=== PATIENT | male | born 1980 | race African-American/Black ===

== ENCOUNTER 2023-08-21 19:42 | Emergency (ER) | payer OTHER ==
[~2023-08-21] VITALS: Ht 193 cm; Wt 81.6 kg
[2023-08-21] MEDS ORDERED: IV NORMAL SALINE 1000 ML BAG IV ONE (20:15)
[2023-08-21] MEDS ORDERED: ONDANSETRON 4 MG/2 ML VIAL IV ONE (20:15)
[2023-08-21] MEDS ORDERED: ONDANSETRON 4 MG/2 ML VIAL ONE (20:26)
[2023-08-21] MEDS ORDERED: PANTOPRAZOLE SODIUM 40 MG VIAL ONE (20:26)
[2023-08-21] MEDS ORDERED: PANTOPRAZOLE SODIUM IV 80 MG in IV DEXTROSE 5% 100 ML IV ONE (20:30)
[2023-08-21 20:32] LABS: WHITE BLOOD COUNT (AUTO) 7.9 K/uL (3.6-10.2)
[2023-08-21 20:39] LABS: BASOPHILS # (AUTO) 0.1 K/UL (0.0-0.2); BASOPHILS % (AUTO) 0.7 % (0.0-2.0); DIFFERENTIAL COMMENT 0; EOSINOPHILS # (AUTO) 0.1 K/uL (0.0-0.7); EOSINOPHILS % (AUTO) 0.6 % (0.0-7.0); HEMATOCRIT 43.7 % (36.7-47.1); HEMOGLOBIN 15.1 g/dL (12.5-16.3); LYMPHOCYTES # (AUTO) 1.3 K/uL (0.8-4.8); LYMPHOCYTES % (AUTO) 16.3 % (20.5-51.5); MEAN CORPUSCULAR HEMOGLOBIN 35.4 uug (23.8-33.4); MEAN CORPUSCULAR HGB CONC 34 g/dL (32.5-36.3); MEAN CORPUSCULAR VOLUME 102.7 fL (73.0-96.2); MONOCYTES # (AUTO) 0.6 K/uL (0.1-1.30); MONOCYTES % (AUTO) 7.2 % (0.0-11.0); NEUTROPHILS % (AUTO) 75.2 % (38.5-71.5); PLATELET COUNT (AUTO) 140 K/uL (152-348); RED BLOOD CELL COUNT(AUTO) 4.26 MIL/uL (4.06-5.63); RED CELL DISTRIBUTION WIDTH 14.7 % (12.1-16.2)
[2023-08-21 20:41] LABS: CALCIUM 8.9 mg/dL (8.5-10.1); CARBON DIOXIDE 29 mmol/L (21-32); CHLORIDE 99 mmol/L (98-107); GLUCOSE 100 mg/dL (74-106); POTASSIUM 3.7 mmol/L (3.5-5.1); SODIUM SERUM 137 mmol/L (136-145); UREA NITROGEN, BLOOD 9 mg/dL (7-18)
[2023-08-21 20:54] LABS: ALANINE AMINOTRANSFERASE 129 U/L (16-63); ALKALINE PHOSPHATASE 73 U/L (50-136); ASPARTATE AMINOTRANSFERASE 214 U/L (15-37); BILIRUBIN,DIRECT 0.2 mg/dL (0.0-0.2); BILIRUBIN,TOTAL 0.5 mg/dL (0.2-1.0); NT-PRO BNP 16 pg/mL (0-125)
[2023-08-21] MEDS ORDERED: ONDA4TAB11 PO (23:26)
[2023-08-21] MEDS ORDERED: THIA100T74 PO (23:26)
[2023-08-21] MEDS ORDERED: OMEP40CA21 PO (23:26)
[2023-08-21] MEDS ORDERED: MULT-594 PO (23:26)
[2023-08-21 23:33] VITALS: BP 140/85; TEMP 98.5; O2SAT 99
== END 2023-08-21 23:33 | disposition home or self-care (01) ==
LOC: ER 19:46
DX: R07.89 Other chest pain (principal); K20.90 Esophagitis, unspecified without bleeding; R11.2 Nausea with vomiting, unspecified; R74.01 Elevation of levels of liver transaminase levels; D75.89 Other specified diseases of blood and blood-forming organs; R03.0 Elevated blood-pressure reading, without diagnosis of hypertension; Z79.899 Other long term (current) drug therapy
CPT/HCPCS: 99291; 96365; 96375; 80076; 80048; 83880; 83690; 85025; 85379; 85730; 86850; 86900; 86901; 84484; 36415; 93005; 71045; J2405; C9113; J7040; A4606; A4663

== ENCOUNTER 2024-11-16 05:32 | Emergency (ER) | payer MEDICAID, OTHER ==
[~2024-11-16] VITALS: Ht 193 cm; Wt 83.0 kg
[~2024-11-16 05:32] MED LIST: MULT-594 PO; OMEP40CA21 PO; ONDA4TAB11 PO; THIA100T74 PO
[2024-11-16] MEDS ORDERED: ACETAMINOPHEN/CODEINE 120-12 MG PER 5 ML LIQUID UDC ONE (06:00)
[2024-11-16] MEDS ORDERED: ASPIRIN 81 MG TAB.CHEW ONE ×2 (06:00→06:08)
[2024-11-16] MEDS: ASPIRIN 81 MG TAB.CHEW PO ONE (06:06)
[2024-11-16] MEDS: ACETAMINOPHEN/CODEINE 120-12 MG PER 5 ML LIQUID UDC PO ONE (06:06)
[2024-11-16 06:16] LABS: BASOPHILS # (AUTO) 0.1 K/UL (0.0-0.2); BASOPHILS % (AUTO) 0.8 % (0.0-2.0); EOSINOPHILS % (AUTO) 0.6 % (0.0-7.0); HEMATOCRIT 41.5 % (36.7-47.1); HEMOGLOBIN 14.1 g/dL (12.5-16.3); LYMPHOCYTES # (AUTO) 2.4 K/uL (0.8-4.8); LYMPHOCYTES % (AUTO) 30.9 % (20.5-51.5); MEAN CORPUSCULAR HEMOGLOBIN 34.9 uug (23.8-33.4); MEAN CORPUSCULAR HGB CONC 34 g/dL (32.5-36.3); MEAN CORPUSCULAR VOLUME 102.6 fL (73.0-96.2); MONOCYTES # (AUTO) 0.6 K/uL (0.1-1.30); MONOCYTES % (AUTO) 8.4 % (0.0-11.0); NEUTROPHILS # (AUTO) 4.5 K/uL (1.8-8.9); NEUTROPHILS % (AUTO) 59.3 % (38.5-71.5); PLATELET COUNT (AUTO) 173 K/uL (152-348); RED BLOOD CELL COUNT(AUTO) 4.04 MIL/uL (4.06-5.63); RED CELL DISTRIBUTION WIDTH 14.7 % (12.1-16.2); WHITE BLOOD COUNT (AUTO) 7.6 K/uL (3.6-10.2)
[2024-11-16 06:22] LABS: DIFFERENTIAL COMMENT 1
[2024-11-16 06:23] LABS: CARBON DIOXIDE 28 mmol/L (21-32); CHLORIDE 105 mmol/L (98-107); CREATININE 0.8 mg/dL (0.6-1.3); GLUCOSE 83 mg/dL (74-106); POTASSIUM 3.5 mmol/L (3.5-5.1); SODIUM SERUM 144 mmol/L (136-145); UREA NITROGEN, BLOOD 6 mg/dL (7-18)
[2024-11-16 06:36] LABS: ALANINE AMINOTRANSFERASE 153 U/L (16-63); ALBUMIN 3.4 g/dL (3.4-5.0); ALKALINE PHOSPHATASE 65 U/L (50-136); ASPARTATE AMINOTRANSFERASE 421 U/L (15-37); BILIRUBIN,DIRECT 0.1 mg/dL (0.0-0.2); BILIRUBIN,TOTAL 0.2 mg/dL (0.2-1.0); NT-PRO BNP 25 pg/mL (0-125)
[2024-11-16] MEDS ORDERED: IBUP-1955 PO (07:02)
[2024-11-16] MEDS ORDERED: BENZ-13 PO (07:02)
[2024-11-16 07:14] VITALS: BP 135/85; TEMP 98.2; O2SAT 99
== END 2024-11-16 07:15 | disposition home or self-care (01) ==
LOC: ER 05:32
DX: J40 Bronchitis, not specified as acute or chronic (principal); F10.20 Alcohol dependence, uncomplicated; R11.2 Nausea with vomiting, unspecified; Z79.899 Other long term (current) drug therapy; Z20.822 Contact with and (suspected) exposure to COVID-19
CPT/HCPCS: 36415; 71045; 83690; 84484; 85025; A4606; A4663